=== PATIENT | female | born 1955 | race Asian ===

== ENCOUNTER 2018-12-06 18:23 | Emergency (ER) | payer OTHER ==
[~2018-12-06] VITALS: Ht 162.6 cm; Wt 62.3 kg
[2018-12-06] MEDS ORDERED: LOSA25TA41 PO (18:28)
[2018-12-06] MEDS ORDERED: MECLIZINE HCL 25 MG TABLET PO ONE (21:00)
[2018-12-06] MEDS ORDERED: ACETAMINOPHEN 325 MG TABLET PO ONE (21:30)
[2018-12-06 22:45] VITALS: BP 140/78
== END 2018-12-06 23:02 | disposition home or self-care (01) ==
LOC: EMS 18:25
DX: R42 Dizziness and giddiness (principal); R51 Headache; R11.0 Nausea; I10 Essential (primary) hypertension; Z98.51 Tubal ligation status; Z79.899 Other long term (current) drug therapy
CPT/HCPCS: 70450; 93005